=== PATIENT | male | born 2000 | race Caucasian/White ===

== ENCOUNTER 2021-01-26 20:10 | Inpatient (IN) | payer OTHER ==
[~2021-01-26] VITALS: Ht 172.7 cm; Wt 72.6 kg
[2021-01-26 20:33] VITALS: BP 121/66
--- NOTE | 2021-01-26 20:38 | NUR ---
patient to the bathroom for urine collection
--- NOTE | 2021-01-26 20:41 | NUR ---
patient to lobby
--- NOTE | 2021-01-26 20:58 | NUR ---
PATIENT TO CHAIR A
--- NOTE | 2021-01-26 21:02 | NUR ---
LABS DRAWN AND HANDED TO ILDA FROM LAB
--- NOTE | 2021-01-26 21:03 | NUR ---
ERMD for examination of patient
--- NOTE | 2021-01-26 21:03 | NUR ---
ERMD explained procedure and went over CT consent. questions answered. patient consented.
[2021-01-26] MEDS ORDERED: MORPHINE SULFATE 4 MG/ML SYR IVP ONE (21:10)
[2021-01-26] MEDS ORDERED: ONDANSETRON 4 MG/2 ML VIAL IVP ONE (21:10)
[2021-01-26 21:11] LABS: MEAN CORPUSCULAR HEMOGLOBIN 27 pg (27-31); PLATELET COUNT (AUTO) 230 K/uL (140-450); WHITE BLOOD COUNT (AUTO) 11.6 K/uL (4.8-10.8)
[2021-01-26 21:13] LABS: APPEARANCE,URINE CLEAR (CLEAR); BILIRUBIN,URINE NEGATIVE (NEGATIVE); BLOOD, URINE NEGATIVE (NEGATIVE); COLOR,URINE YELLOW (YELLOW); LEUKOCYTE ESTERASE ,URINE NEGATIVE (NEGATIVE); NITRITE, URINE NEGATIVE (NEGATIVE); UGLUCOSE NEGATIVE (NEGATIVE)
--- NOTE | 2021-01-26 21:16 | NUR ---
TO BED AMBULATORY
[2021-01-26 21:18] LABS: BASOPHILS # (AUTO) 0.1 K/uL (0.00-0.22); BASOPHILS % (AUTO) 0.5 % (0.0-2.0); EOSINOPHILS # (AUTO) 0.1 K/uL (0-0.4); EOSINOPHILS % (AUTO) 0.8 % (0.0-4.0); HEMATOCRIT 44.4 % (36-52); LYMPHOCYTES # (AUTO) 2.1 K/uL (2.0-11.5); LYMPHOCYTES % (AUTO) 18.3 % (20.5-51.1); MEAN CORPUSCULAR HGB CONC 34 g/dL (33-37); MONOCYTES # (AUTO) 0.9 K/uL (0.8-1.0); MONOCYTES % (AUTO) 8.1 % (1.7-9.3); NEUTROPHILS # (AUTO) 8.4 K/uL (1.8-7.7); NEUTROPHILS % (AUTO) 72.3 % (42.2-75.2); RED BLOOD CELL COUNT(AUTO) 5.55 MIL/uL (4.20-6.10); RED CELL DISTRIBUTION WIDTH 13.3 % (11.6-13.7)
--- NOTE | 2021-01-26 21:20 | NUR ---
PT. IS A 20 Y/O MALE WHO CAME TO ED WITH C/O OF RIGHT SIDED ABDOMINAL PAIN. PT. STATES HE HAD AN APPENDECTOMY ON NOVEMBER 28, 2020 AND 2 WEEKS AGO HIS ABDOMEN ON HIS RIGHT SIDED HAS STARTED TO SWELL AND HAS BECOME PAINFUL. PT. RATES PAIN 8/10 ON THE PAIN SCALE AT THIS TIME. DENIES N/V/D/FEVER. SKIN IS PINK/WARM/DRY; AAOX4 WITH EVEN AND STEADY GAIT; HR EVEN AND REGULAR; PT DENIES ANY FEVER, CP, SOB, OR COUGH AT THIS TIME; VSS; PATIENT POSITIONED FOR COMFORT; HOB ELEVATED; BEDRAILS UP X1; BED DOWN. ER MD MADE AWARE OF PT STATUS. PMH: APPENDECTOMY (NOVEMBER 28, 2020) ALLERGIES: NKA
[2021-01-26 21:22] LABS: ALBUMIN 3.9 g/dL (3.4-5.0); CARBON DIOXIDE 29.7 mmol/L (21-32); CREATININE 1.3 mg/dL (0.6-1.3); POTASSIUM 3.7 mmol/L (3.5-5.1); TOTAL BILIRUBIN 0.7 mg/dL (0.0-1.0)
--- NOTE | 2021-01-26 21:41 | NUR ---
PT. TAKEN TO CT VIA W/C
--- NOTE | 2021-01-26 21:56 | NUR ---
PT. BACK FROM CT.
--- NOTE | 2021-01-26 22:57 | NUR ---
PT. LAYING COMFORTABLY IN SUPINE POSITION WITH EYES CLOSED, VOICES NO COMPLAINTS AT THIS TIME. WILL CONTINUE TO MONITOR
[2021-01-26] MEDS ORDERED: PIPERACILLIN/TAZOBACTAM 3.375 GM in DEXTROSE 5% 50 ML IV ONE (23:05)
[2021-01-26] MEDS ORDERED: PIPERACILLIN/TAZOBACTAM 3.375 GM VIAL IV ONE (23:10)
--- NOTE | 2021-01-26 23:13 | NUR ---
Dr. Galloway examining patient.
[2021-01-27] MEDS ORDERED: MORPHINE SULFATE 4 MG/ML SYR IVP ONE (00:05)
[2021-01-27] MEDS ORDERED: ONDANSETRON 4 MG/2 ML VIAL IVP ONE (00:05)
[2021-01-27] MEDS ORDERED: MORPHINE SULFATE 4 MG/ML SYR IVP PRN (00:30)
[2021-01-27] MEDS ORDERED: ACETAMINOPHEN 325 MG TAB PO PRN (00:30)
--- NOTE | 2021-01-27 00:50 | NUR ---
PT. FATHER (BERNARDA FONTENOT) ASKED TO BE UPDATED ON PT. REGARDING STATUS OF PENDING SURGERY. PHONE NUMBER:
[2021-01-27] MEDS: LACTATED RINGERS 1,000 ML IV SCH ×3 (01:16→20:30)
--- NOTE | 2021-01-27 01:26 | NUR ---
SPOKE TO DR. WELLER OVER THE PHONE REGARDING PT. TEMPERATURE OF 100.6 AND OF PT. PAIN AND GIVEN MORPHINE 4MG [address] WELLER GIVEN NEW ORDERS OF: TYLENOL 650MG PRN RECTALLY AND DILAUDID 1MG Q 4HRS PRN IVP.
--- NOTE | 2021-01-27 01:30 | NUR ---
PT. GIVEN COLD COMPRESS ON FOREHEAD AND UNDER ARMPITS FOR 100.6 TEMP.
[2021-01-27] MEDS ORDERED: HYDROmorphone PFS 2 MG/ML SYR IVP SCH (01:40)
[2021-01-27] MEDS ORDERED: ACETAMINOPHEN 650 MG SUPP RC SCH (01:40)
[2021-01-27] MEDS ORDERED: HYDROmorphone 1 MG/ML AMP ONE (01:47)
[2021-01-27] MEDS ORDERED: ACETAMINOPHEN 650 MG SUPP RC ONE (01:48)
--- NOTE | 2021-01-27 02:25 | NUR ---
PT. STATES RELIEF FROM PAIN AND RECHECKED TEMP. ORALLY = 100.2
--- NOTE | 2021-01-27 03:00 | NUR ---
SHALINI FROM CT CALLED TO ORDERS PT, INR, AND PLT LAB. I TOLD HER THAT THEY WERE ALREADY ORDERED.
--- NOTE | 2021-01-27 03:31 | NUR ---
RECHECKED ORAL TEMP. = 99.0
[2021-01-27] MEDS ORDERED: PIPERACILLIN/TAZOBACTAM 3.375 GM VIAL IV ONE ×2 (05:02→22:53)
[2021-01-27] MEDS: PIPERACILLIN/TAZOBACTAM 3.375 GM in DEXTROSE 5% 50 ML IV SCH ×3 (05:22→21:00)
--- NOTE | 2021-01-27 06:11 | NUR ---
ROSA SWAB COLLECTED AND WALKED TO LAB. HANDED TO ADELINE, FROM LAB
--- NOTE | 2021-01-27 07:22 | NUR ---
REPORT GIVEN TO PAU CASTILLO. TRANSFER OF CARE AT THIS TIME
--- NOTE | 2021-01-27 07:23 | NUR ---
RECEIVED REPORT FROM PAU VINCENT. TRANSFER OF CARE AT THIS TIME.
--- NOTE | 2021-01-27 07:55 | NUR ---
SPOKE WITH AYAN FOR REPORT TO BE GIVEN. ASKED IF SHE COULD CALL BACK IN 5 MINUTES AT OUR EXTENSION. SHARMILA LEONARD RN MADE AWARE.
--- NOTE | 2021-01-27 08:00 | NUR ---
SPOKE WITH AYAN FOR REPORT TO BE GIVEN. ASKED IF SHE COULD CALL BACK IN 10 MINUTES AT OUR EXTENSION. SHARMILA LEONARD RN MADE AWARE.
--- NOTE | 2021-01-27 08:23 | NUR ---
GAVE REPORT TO PAU BOTELLO FOR PENDING ADMISSION TO [facility]. ETA 10MINUTES.
--- NOTE | 2021-01-27 08:30 | NUR ---
Patient will be admitted to care of DR. WELLER. Admited to M/S. Will go to room 128B. Belongings list completed. Report to PAU BOTELLO.
[2021-01-27 10:19] VITALS: BP 110/53
[2021-01-27] MEDS: HYDROmorphone 1 MG/ML AMP IVP PRN ×4 (10:48→22:47)
[2021-01-27] MEDS: ONDANSETRON 4 MG/2 ML VIAL IVP PRN ×4 (10:48→22:50)
--- NOTE | 2021-01-27 10:57 | NUR ---
ADMINISTERED SCHEDULED MEDICATIONS PER MD ORDER. IV FLUIDS ARE RUNNING WELL. ADMINISTERED 1MG OF DILAUDID FOR PAIN 9/10 ON ABDOMEN WHICH IS DESCRIBED STABBING. EDUCATED PT ON MEDICATIONS SIDE EFFECTS AND MOA. PT VERBALIZED UNDERSTANDING. BP IS 121/59 WY 71 RR19. PT IS TALKING ON THE PHONE AND NO SIGNS OF ACUTE DISTRESS IS NOTED. SAFETY PRECAUTIONS ARE IN PLACE. WILL CONTINUE TO MONITOR.
--- NOTE | 2021-01-27 13:37 | NUR ---
ADMINISTERED SCHEDULED MEDICATIONS PER MD ORDER. EDUCATED PT ON MEDICATIONS MOA AND SIDE EFFECTS. PT VERBALIZED UNDERSTANDING. PT IS ON THE PHONE. IV FLUIDS ARE RUNNING WELL. SAFETY PRECAUTIONS ARE IN PLACE. WILL CONTINUE TO MONITOR.
--- NOTE | 2021-01-27 13:42 | NUR ---
MESSAGED DR. HUNTER TO CLARIFY IF PT WAS GOING TO HAVE A DRAINAGE OR BIOPSY BECAUSE SHALINI FROM CT WAS CONFUSED.
[2021-01-27 13:51] LABS: PROTHROMBIN TIME 9.7 secs (10.8-13.4)
--- NOTE | 2021-01-27 14:00 | NUR ---
PT REQUESTED TO TALK TO MD.WILL CONTACT MDTO TALK TO PT IN REGARDS HIS STATUS.
--- NOTE | 2021-01-27 14:07 | NUR ---
DR. HUNTER INSTRUCTED ME TO NOTIFY DR. BARAKAT ABOUT CT. WILL CONTACT DR. BARAKAT.
--- NOTE | 2021-01-27 14:22 | NUR ---
ADMINISTERED 1MG OF DILAUDID AND ZOFRAN FOR PAIN 8/10 ON ABDOMEN DESCRIBED STABBING PAIN. BP WAS 113/56 FL 68 RR 18. EDUCATED PT ON MEDICATIONS MOA AND SIDE EFFECTS. PT VERBALIZED UNDERSTANDING. CALL LIGHT IS WITHIN REACH. PT'S FATHER IS AT BEDSIDE. WILL CONTINUE TO MONITOR.
--- NOTE | 2021-01-27 15:32 | NUR ---
AFTER NO ANSWER FROM DR. BARAKAT, CALLED DR. BARAKAT AND THERE WAS NO ANSWER. I LEFT A VOICE MESSAGE TO CALL BACK.
[2021-01-27 16:00] VITALS: BP 109/55
--- NOTE | 2021-01-27 16:00 | NUR ---
DR. BARAKAT ORDERED A CT ABDOMEN AND PELVIS ORAL CONTRAST ONLY WITH DELAYED FILM. DR. BARAKAT SPOKE TO PT'S FATHER OVER THE PHONE. PT AND PT'S FAMILY UNDERSTAND POC.
--- NOTE | 2021-01-27 18:36 | NUR ---
ADMINISTERED SCHEDULED MEDICATIONS PER MD ORDER. EDUCATED PT ON MEDICATIONS MOA AND SIDE EFFECTS. PT VERBALIZED UNDERSTANDING. BP WAS 119/51 CO 81 RR 19. WILL CONTINUE TO MONITOR.
--- NOTE | 2021-01-27 19:30 | NUR ---
ENDORSED TO NIGHT NURSE FOR CONTINUITY OF CARE. PT IS STABLE
[2021-01-27 20:00] VITALS: BP 126/65
--- NOTE | 2021-01-27 20:00 | NUR ---
PATIENT RECEIVED IN BED ALERT AND ORIENTED X 3-4 ABLE TO SPEAK NEEDS, NO S/S OF DISTRESS.
--- NOTE | 2021-01-27 23:00 | NUR ---
PATIENT WAS SENT TO THE RADIOLOGY FOR ABD CT SCAN.
--- NOTE | 2021-01-28 | NUR ---
PATIENT WAS CALMLY ASLEEP
--- NOTE | 2021-01-28 02:00 | NUR ---
PATIENT WAS CALMLY ASLEEP
[2021-01-28] MEDS: HYDROmorphone 1 MG/ML AMP IVP PRN ×6 (03:37→21:45)
[2021-01-28] MEDS: ONDANSETRON 4 MG/2 ML VIAL IVP PRN ×2 (03:38→08:49)
[2021-01-28 04:00] VITALS: BP 124/70
--- NOTE | 2021-01-28 04:00 | NUR ---
AT 330 PATIENT ASKED OF PAIN SHOT AND ZOFRAN FOR NAUSEA AND PAIN.
[2021-01-28] MEDS: PIPERACILLIN/TAZOBACTAM 3.375 GM in DEXTROSE 5% 50 ML IV SCH ×3 (05:00→21:00)
[2021-01-28 06:13] LABS: BASOPHILS % (AUTO) 0.4 % (0.0-2.0); EOSINOPHILS # (AUTO) 0.2 K/uL (0-0.4); EOSINOPHILS % (AUTO) 1.5 % (0.0-4.0); HEMOGLOBIN 13.4 g/dL (12.0-18.0); LYMPHOCYTES # (AUTO) 2.1 K/uL (2.0-11.5); LYMPHOCYTES % (AUTO) 17.8 % (20.5-51.1); MEAN CORPUSCULAR HEMOGLOBIN 27 pg (27-31); MEAN CORPUSCULAR HGB CONC 34 g/dL (33-37); MEAN CORPUSCULAR VOLUME 79.3 fL (80-94); MONOCYTES # (AUTO) 1.2 K/uL (0.8-1.0); NEUTROPHILS # (AUTO) 8.2 K/uL (1.8-7.7); NEUTROPHILS % (AUTO) 70.3 % (42.2-75.2); PLATELET COUNT (AUTO) 201 K/uL (140-450); RED BLOOD CELL COUNT(AUTO) 5.04 MIL/uL (4.20-6.10); RED CELL DISTRIBUTION WIDTH 12.9 % (11.6-13.7); WHITE BLOOD COUNT (AUTO) 11.6 K/uL (4.8-10.8)
[2021-01-28 06:20] LABS: ANION GAP 14.2 (8-16); CARBON DIOXIDE 25.7 mmol/L (21-32); CREATININE 1.1 mg/dL (0.6-1.3); POTASSIUM 3.9 mmol/L (3.5-5.1)
[2021-01-28] MEDS: LACTATED RINGERS 1,000 ML IV SCH ×2 (06:43→16:33)
[2021-01-28 08:00] VITALS: BP 114/56
--- NOTE | 2021-01-28 08:00 | NUR ---
ALL REPORTS WERE GIVEN, TRANSFER OF CARE ENDORSED.
--- NOTE | 2021-01-28 08:46 | NUR ---
PATIENT HAS BEEN SCREENED AND CATEGORIZED MODERATE NUTRITION RISK. PATIENT WILL BE SEEN WITHIN 3-5 DAYS OF ADMISSION. 01/29/21 01/31/[address]
[2021-01-28] MEDS: ENOXAPARIN 40 MG/0.4 ML SYR SUBQ SCH (08:47)
--- NOTE | 2021-01-28 08:49 | NUR ---
ADMINISTERED SCHED MED PRESCRIBED PER MD ORDER. PT TOLERATED WELL. PT COMPLAINED OF SEVERE PAIN. PRN PAIN MEDICATION EDUCATION PERFORMED. PT VERBALIZED UNDERSTANDING. SAFETY MEASURES IN PLACE. WILL CONTINUE TO MONITOR
--- NOTE | 2021-01-28 09:07 | NUR ---
Father requested to speak to nursing sup. requested his son to transfer to [facility]. His concern that he has not seen the surgeon and the primary doctor. Paged Dr Valladares and spoke to the father, Paged Dr Barakat surgeon and spoke to the father. I called [facility] transfer center and no bed available and stated if the surgery did not take place at [facility], they cannot accept the patient. Called [facility] k[facility] and spoke to Ana Cristina and faxed all paper work at [phone] called the rn case manager hospice at [facility] spoke to Sridevi and faxed her the information and request of transfer per the father at [phone] Father was made aware of all the places of transfers. Addendum: 01/28/21 at 1509 by Rani Medley RN DC PLANNING: SPOKE WITH PT'S FATHER CALVIN , DISCUSSED THE ISSUES AND CONCERNS, AND HE REQUESTED FOR HIS SON TO BE TRANSFERRED TO [facility] WHICH HE HAD SURGERY THERE [address] BARAKAT. SPOKE WITH DR MARTIN STATED DR BARAKAT WILL BE THE ACCEPTING DR. CALLED [facility] [phone] SPOKE WITH MECHANICAL FACILITIES TECHNICIAN BEA STATED THEY ARE FULL NO BEDS 48 PEOPLE ARE WAITING FOR BED AND UNABLE TO ACCEPT HIM. CALLED DR BARAKAT AND NOTIFIED HIM THAT NO BED AVAILABLE. PER DR BARAKAT TO TELL FAMILY AND WHEN HE COMES HE WILL DISCUSS WITH THEM. I INFORMED CALVIN THAT THE [facility] HAS NO BED. HE STATED HE UNDERSTOOD THE HIGH DEMAND FOR BED AND WILLING TO STAY AT THE HOSPITAL LONG THERE IS CLEAR COMMUNICATION BETWEEN THE NURSES AND THE PATIENT. I CLARIFIED AND INSTRUCT FOR ANY ISSUES TO ADDRESS IT WITH MECHANICAL FACILITIES TECHNICIAN AND PROVIDE MY NUMBER FOR ANY ISSUES AND CONCERN . BOTH THANKED ME AND WANTED TO STAY AND CONTINUE WITH THE PROCEDURE. AWAITING FOR DR WONG. CORRALES TO FOLLOW Addendum: 01/29/21 at 1353 by Rani Medley RN DC PLANNING: MET DR BARAKAT IN PT'S ROOM EXAMINED AND EXPLAINED, ANSWERED ALL QUESTION, NO SURGERY NEEDED BUT WILL CONSULT GI TO EVALUATE HIM. I ASKED DR BARAKAT THAT IF HE STILL WANTED TO TRANSFER HIM TO [facility] STATED IF THEY HAVE A BED TO CHECK WITH THEM. CALLED [facility] SPOKE WITH MELANIE RICHARDSON SUP STILL FULL HIGH VOLUME OF WAITING FOR BED. FAXED THE REQUEST TO [phone] BARAKAT. SAVANNA TO FOLLOW. Addendum: 01/31/21 at 1213 by Rani Medley RN DC PLANNING: CALLED DR BARAKAT DISCUSSED THE DC PLAN , HE STATED WILL DC HIM TOMORROW 02/01 WITH [facility] ABX AND FOLLOW UP WITH HIM AND DR KILLIAN OUT PATIENT. CALLED DR ORTIZ AND DISCUSSED THE DC PLAN. PER DR ORITZ WILL EVALUATE PATIENT. CM TO FOLLOW Addendum: 01/31/21 at 1718 by Rani Medley RN DC PLANNING: I WAS CALLED BY PATIENT AND HIS STEP MOM REQUESTING TO CLARIFY WITH DR BARAKAT IS OK WITH DC I CALLED DR DUARTE DISCUSSED THAT IF OK WITH DR BARAKAT . DR DUARTE STATED DISCUSSED WITH DR BARAKAT AND AGREED THAT PATIENT IS STABLE FOR DC AND TO FOLLOW UP WITH GI AND SURGEON WITH IN [address]. [address] KILLIAN'S OFFICE REQUESTED AUTH FROM THE INSURANCE FAXED TO [facility] AND WILL FOLLOWUP TOMORROW. EXPLAINED TO THE PATIENT AND FAMILY THEY BOTH AGREED AND I WILL BE CALLING THEM WITH THE FOLLOW UP APPOINTMENT I ALSO CLARIFIED THE PHONE NUMBER ON THE FACE SHEET. PT ALERT AND ORIENTED X 4 NO COMPLAIN OF PAIN TOLERATED FOOD INTAKE WELL STABLE FOR DISCHARGE. CM T FOLLOW Addendum: 02/01/21 at 1615 by Rani Medley RN DC PLANNING: CALLED [facility] SPOKE WITH SHAY CORRALES PROVIDE THE OUT PATIENT VISIT AUTH# FOR DR SUNITHA BARRAZA (GI) [id number] [address] [address] PHONE NUMBER [phone] FAXED ALL PAPERWORK TO [phone]. APPOINTMENT DAY 2020 AT 1:50 PM ,IT WILL BE TELEPHONE CALL. FOR DR YUVAL MANZANO AUTH NUMBER [id number] AND THE ADDRESS [address] [id number]. ANOINTMENT DAY AT 9:45 AM. CALLED PATIENT ON HIS CELL [phone] PROVIDE THE APPOINTMENT DATE. PT VERBALIZED UNDERSTANDING AND WILL PLAN TO GO SEE THE DR. CORRALES TO FOLLOW
--- NOTE | 2021-01-28 11:05 | NUR ---
FATHER WANTS TO PT TO BE TRANSFERED TO A DIFFERENT HOSPITAL. INFORMED DAD THAT DR. PALENCIA NOTIFIED RN THAT HE WILL BE SEEING THE PATIENT IN THE AFTERNOON SINCE HE IS CURRENTLY AT A DIFFERENT HOSPITAL. DAD VERBALIZED UNDERSTANDING
--- NOTE | 2021-01-28 12:00 | NUR ---
DR. DE LA PAZ AT BEDSIDE ASSESSING PATIENT AND SPEAKING WITH FATHER
--- NOTE | 2021-01-28 12:30 | NUR ---
NOTIFIED CASE MANAGEMENT OF PATIENT SITUATION. DAD IS AWARE THAT CASE MANAGEMENT IS ON THE CASE AND WILL VISIT HIM SHORTLY. WILL CONTINUE TO MONITOR
--- NOTE | 2021-01-28 13:06 | NUR ---
PATIENT COMPLAINED OF SEVERE PAIN. PRN PAIN MEDICATION ADMINISTERED PRESCRIBED PER MD ORDER. PT TOLERATED WELL. MEDICATION EDUCATION PERFORMED. PT VERBALIZED UNDERSTANDING. SAFETY MEASURES IN PLACE. WILL CONTINUE TO MONITOR
--- NOTE | 2021-01-28 14:30 | NUR ---
PT AND DAD RESTING IN BED. NO NEEDS AT THIS TIME. NO SIGNS OF DISTRESS. SAFETY MEASURES IN PLACE. WILL CONTINUE TO MONITOR
[2021-01-28 16:00] VITALS: BP 129/63
--- NOTE | 2021-01-28 16:36 | NUR ---
ADMINISTERED SCHED IV FLUID PRESCRIBED PER MD ORDER. PT TOLERATED WELL. SAFETY MEASURES IN PLACE. WILL CONTINUE TO MONITOR
--- NOTE | 2021-01-28 18:15 | NUR ---
PATIENT RESTING IN BED. ABLE TO MAKE NEEDS KNOWN. RESPIRATIONS EVEN AND UNLABORED WITH NO SOB OR RESPIRATORY DISTRESS. SAFETY MEASURES IN PLACE. WILL CONTINUE TO MONITOR
--- NOTE | 2021-01-28 19:13 | NUR ---
ENDORSED AT BEDSIDE TO NIGHTSHIFT FOR NURSE FOR CONTINUITY OF CARE
--- NOTE | 2021-01-28 20:00 | NUR ---
PATIENT WAS RECEIVED IN BED ALERT AND ORIENTED, COHERENT, DENIES ANY PAIN AT THIS TIME.
--- NOTE | 2021-01-28 21:00 | NUR ---
DUE IV MED WAS GIVEN INFUSING WELL TOLERATED BY THE PATIENT , C/O PAIN IN HIS ABD 01/15 DILAUDID 1 MG UC ARCHITECT WAS GIVEN TOLERATED WELL BY THE PATIENT.
[2021-01-28] MEDS ORDERED: PIPERACILLIN/TAZOBACTAM 3.375 GM VIAL IV ONE (21:32)
--- NOTE | 2021-01-29 | NUR ---
PATIENT WAS CALMLY ASLEEP AT THIS TIME, NOS/S OF DISTRESS NOR GRIMACING.
[2021-01-29] MEDS: MORPHINE SULFATE 2 MG/ML SYR IVP PRN ×2 (01:18→14:08)
--- NOTE | 2021-01-29 02:00 | NUR ---
PATIENT WAS CALMLY ASLEEP AT THIS TIME, NOS/S OF DISTRESS NOR GRIMACING.
[2021-01-29] MEDS: HYDROmorphone 1 MG/ML AMP IVP PRN ×4 (02:32→20:18)
[2021-01-29] MEDS ORDERED: PIPERACILLIN/TAZOBACTAM 3.375 GM VIAL IV ONE (04:39)
[2021-01-29] MEDS: metroNIDAZOLE 500 MG/NS PREMIX 100 ML IV SCH ×3 (04:41→21:28)
[2021-01-29] MEDS: PIPERACILLIN/TAZOBACTAM 3.375 GM in DEXTROSE 5% 50 ML IV SCH ×3 (04:49→20:19)
--- NOTE | 2021-01-29 05:00 | NUR ---
V/S WNL, FLAGYL 500 MG/100 ML IVPB WAS INFUSED AT 100 ML/HOUR, TOLERATED WELL, ZOSYN 3.375 GMS/ 50 ML WAS ADMINISTERED AFTER THE FLAGYL AT 100 ML/ HOUR TOLERATED WELL BY THE PATIENT, NO ASE OBSERVED.
--- NOTE | 2021-01-29 07:08 | NUR ---
ALL REPORTS WERE GIVEN, TRANSFER OF CARE ENDORSED.
--- NOTE | 2021-01-29 07:30 | NUR ---
RECEIVED REPORT FROM DAY SHIFT NURSE. AOX4, ABLE TO MAKE NEEDS KNOWN, AMBULATORY, B/B CONTINENT. NO SOB, ON ROOM AIR, NO C/O PAIN AT THIS TIME. WITH IV ON LAC 20G LR AT 10CC/HR. ON CLEAR LIQUID DIET. SKIN IS INTACT. SAFETY PRECAUTIONS IN PLACE. CALL LIGHT WITHIN REACH. WILL CONTINUE TO MONITOR
[2021-01-29 08:00] VITALS: BP 118/68
[2021-01-29] MEDS: ENOXAPARIN 40 MG/0.4 ML SYR SUBQ SCH (09:00)
--- NOTE | 2021-01-29 09:30 | NUR ---
DUE MEDS GIVEN. NO SOB PAIN. WITH TOLERABLE ABD PAIN AT THIS TIME
--- NOTE | 2021-01-29 11:30 | NUR ---
WITH C/O ABD PAIN 01/15. DILAUDID IVP GIVEN ORDERED
[2021-01-29] MEDS: LACTATED RINGERS 1,000 ML IV SCH ×3 (12:10→23:44)
--- NOTE | 2021-01-29 12:30 | NUR ---
SEEN BY NATACHA WILLINGHAM. MAT ADVANCE DIET TO SOFT
[2021-01-29 12:58] LABS: BASOPHILS % (AUTO) 0.6 % (0.0-2.0); EOSINOPHILS # (AUTO) 0.1 K/uL (0-0.4); EOSINOPHILS % (AUTO) 1.7 % (0.0-4.0); HEMATOCRIT 40.8 % (36-52); HEMOGLOBIN 13.8 g/dL (12.0-18.0); LYMPHOCYTES # (AUTO) 1.5 K/uL (2.0-11.5); LYMPHOCYTES % (AUTO) 18.5 % (20.5-51.1); MEAN CORPUSCULAR HEMOGLOBIN 27 pg (27-31); MEAN CORPUSCULAR HGB CONC 34 g/dL (33-37); MEAN CORPUSCULAR VOLUME 79.4 fL (80-94); MONOCYTES # (AUTO) 0.8 K/uL (0.8-1.0); MONOCYTES % (AUTO) 9.7 % (1.7-9.3); NEUTROPHILS # (AUTO) 5.6 K/uL (1.8-7.7); NEUTROPHILS % (AUTO) 69.5 % (42.2-75.2); PLATELET COUNT (AUTO) 191 K/uL (140-450); RED BLOOD CELL COUNT(AUTO) 5.14 MIL/uL (4.20-6.10)
--- NOTE | 2021-01-29 13:15 | NUR ---
PT EATING LUNCH AT THIS TIME, NO C/O PAIN, NO SOB
--- NOTE | 2021-01-29 14:30 | NUR ---
PT REQUESTED TO SHOWER. TOWELS AND TOILETRIES PROVIDED. PT AMBULATED TO SHOWER ROOM
[2021-01-29 16:00] VITALS: BP 124/66
--- NOTE | 2021-01-29 16:20 | NUR ---
PT RESTING IN BED, NO C/O PAIN AT THIS TIME, NO RESPIRATORY DISTRESS
--- NOTE | 2021-01-29 18:22 | NUR ---
PT'S FATHER AT BEDSIDE. NO COMPLAINTS AT THIS TIME
[2021-01-29 20:00] VITALS: BP 126/64
--- NOTE | 2021-01-29 20:00 | NUR ---
RECEIVED REPORT AT BEDSIDE.FATHER AT BEDSIDE.PT'S CONDITION IS STABLE.IVF INFUSING WELL. CALL LIGHT WITHIN REACH.WILL CONT.MONITORING.
[2021-01-30] MEDS: HYDROmorphone 1 MG/ML AMP IVP PRN ×2 (00:28→06:33)
--- NOTE | 2021-01-30 00:54 | NUR ---
HAD C/O PAIN EARLIER.IV MED GIVEN.WILL REASSESS PAIN PER PROTOCOL.
--- NOTE | 2021-01-30 02:19 | NUR ---
LATE ENTRY- ZOSYN IVPB DISCONTINUED AT 2355 AND LR IVF DISCONTINUED AT 0830.
--- NOTE | 2021-01-30 03:00 | NUR ---
SLEEPING.NO DISTRESS NOTED NOW.
[2021-01-30 04:00] VITALS: BP 127/64
[2021-01-30] MEDS: PIPERACILLIN/TAZOBACTAM 3.375 GM in DEXTROSE 5% 50 ML IV SCH ×3 (04:33→21:30)
[2021-01-30] MEDS: MORPHINE SULFATE 2 MG/ML SYR IVP PRN ×3 (04:35→18:39)
[2021-01-30] MEDS: metroNIDAZOLE 500 MG/NS PREMIX 100 ML IV SCH ×3 (05:13→21:54)
--- NOTE | 2021-01-30 07:24 | NUR ---
RECEIVED REPORT FROM ASSISTANT PLANT CONTROL OPERATOR NURSE FOR CONTINUITY OF CARE, POC DISCUSSED. PT IS STABLE WITH NO ACUTE S/S OF DISTRESS. PT IS ASLEEP IN BED ON ROOM AIR WITH CHEST RISING AND FALLING EVEN AND UNLABORED. PT HAS A LEFT AC 20 G RUNNING LR AT 120. SKIN INTACT, ALL SAFETY MEASURES IN PLACE. CALL LIGHT WITHIN REACH. WILL CONTINUE TO MONITOR.
--- NOTE | 2021-01-30 07:45 | NUR ---
ENDORSED TO AM RN IN STABLE CONDITION.
[2021-01-30] MEDS: ENOXAPARIN 40 MG/0.4 ML SYR SUBQ SCH (08:31)
[2021-01-30] MEDS: LACTATED RINGERS 1,000 ML IV SCH ×2 (08:31→18:27)
--- NOTE | 2021-01-30 09:14 | NUR ---
PT REFUSED LOVENOX, STATES HE DOES NOT WANT IT BECAUSE HE IS WALKING AROUND MORE. EDUCATION PROVIDED, PT STILL DECLINES. MEDICATION RETURNED. LR FLUIDS RESTARTED. PT REPORTS A MILD HEADACHE, MEDICATED PER MD ORDER. PT EDUCATION PROVIDED. PT REPORTS ALL OTHER NEEDS ARE MET AT THIS TIME. CALL LIGHT WITHIN REACH. WILL CONTINUE TO MONITOR.
--- NOTE | 2021-01-30 10:19 | NUR ---
PT IS RESTING IN BED WITH NO ACUTE S/S OF DISTRESS. PT VERBALIZED ALL NEEDS ARE MET AT THIS TIME. REPORTS PAIN TOLERABLE. ALL SAFETY MEASURES IN PLACE, CALL LIGHT WITHIN REACH. WILL CONTINUE TO MONITOR.
--- NOTE | 2021-01-30 11:30 | NUR ---
PT SHEETS HAVE BEEN CHANGED, PT PROVIDED WITH WATER. PT REPORTS PAIN TOLERABLE AND NOT REQUESTING PAIN MEDICATION. PT URINAL EMPTIED OF 400 ML. PT REPORTS A BOWEL MOVEMENT DURING AM, REPORTS BEING FULL OF GAS. ALL SAFETY MEASURES IN PLACE, CALL LIGHT WITHIN REACH. WILL CONTINUE TO MONITOR.
[2021-01-30 12:00] VITALS: BP 112/58
--- NOTE | 2021-01-30 13:29 | NUR ---
YAQUELIN MEDICATION ADMINISTERED PER MD ORDER, PT REPORTED OF MODERATE PAIN, MEDICATED PER MD ORDER. PT TOLERATED ADMINISTRATION. ALL SAFETY MEASURES IN PLACE. CALL LIGHT WITHIN REACH. WILL CONTINUE TO MONITOR.
--- NOTE | 2021-01-30 15:04 | NUR ---
PT DENIES PAIN AND NAUSEA. ALL SAFETY MEASURES IN PLACE, CALL LIGHT WITHIN REACH. WILL CONTINUE TO MONITOR.
--- NOTE | 2021-01-30 15:46 | NUR ---
01/30/21 RD INITIAL ASSESSMENT COMPLETED PLEASE REFER TO NUTRITION ASSESSMENT UNDER CARE ACTIVITY FOR ESTIMATED NUTRITIONAL NEEDS. 1. CONTINUE SOFT DIET MEDICALLY APPROPRIATE 2. IF/WHEN MEDICALLY APPROPRIATE ADVANCE PATIENT TO REGULAR DIET 3. RD TO FOLLOW-UP 5-7 DAYS, LOW RISK GARY MAR, RD
--- NOTE | 2021-01-30 17:01 | NUR ---
PT IS STABLE WITH NO ACUTE S/S OF DISTRESS, ALL SAFETY MEASURES IN PLACE. CALL LIGHT WITHIN REACH. WILL CONTINUE TO MONITOR.
--- NOTE | 2021-01-30 18:40 | NUR ---
PT IV FLUIDS HAVE BEEN REPLENISHED. PT REPORTED OF 8/10 PAIN, MEDICATED PER MD ORDER. PT EDUCATION PROVIDED. PT TOLERATED ADMINISTRATION. DINNER AT BEDSIDE. FATHER AT BEDSIDE. ANSWERED ALL OF FATHERS QUESTIONS. FATHER REPORTED THAT DURING STRATEGIC SOURCING SPECIALIST, SOMEONE WHO ANSWERED HIS CALL LIGHT WAS RUDE AND DISRESPECTFUL. NOTIFIED CHARGE NURSE.
--- NOTE | 2021-01-30 19:05 | NUR ---
PT ENDORSED TO AUTOMATION QTP TESTER IN STABLE CONDITION, POC DISCUSSED.
--- NOTE | 2021-01-30 19:06 | NUR ---
RECEIVED REPORT FROM AM NURSE. PATIENT IN BED RESTING. NO SOB NOTED. NO COMPLAINTS OF PAIN AT THIS TIME. ALL SAFETY PRECAUTIONS ARE IN PLACE. CALL LIGHT WITHIN REACH. IVF INFUSING WELL. WILL CONTINUE TO MONITOR.
--- NOTE | 2021-01-30 21:30 | NUR ---
ZOSYN GIVEN ORDERED.
--- NOTE | 2021-01-30 21:54 | NUR ---
FLAGYL ADMINISTERED PER MD ORDERED.
[2021-01-31] VITALS: BP 112/59
[2021-01-31] MEDS: HYDROmorphone 1 MG/ML AMP IVP PRN (00:01)
--- NOTE | 2021-01-31 00:01 | NUR ---
COMPLAINED OF SEVERE ABDOMINAL PAIN 01/15. PRN MEDICATION GIVEN ORDERED.
[2021-01-31] MEDS: LACTATED RINGERS 1,000 ML IV SCH ×2 (04:30→14:30)
[2021-01-31] MEDS: PIPERACILLIN/TAZOBACTAM 3.375 GM in DEXTROSE 5% 50 ML IV SCH ×2 (05:22→13:45)
--- NOTE | 2021-01-31 05:28 | NUR ---
DUE MEDS GIVEN ORDERED.
[2021-01-31] MEDS: metroNIDAZOLE 500 MG/NS PREMIX 100 ML IV SCH ×2 (05:47→12:42)
--- NOTE | 2021-01-31 07:21 | NUR ---
ENDORSED TO AM NURSE FOR CONTINUITY OF CARE. PATIENT IS IN STABLE CONDITION.
--- NOTE | 2021-01-31 07:33 | NUR ---
RECEIVED REPORT FROM MANAGER STAFFING NURSE FOR CONTINUITY OF CARE, POC DISCUSSED. PT IS RESTING IN BED WITH NO ACUTE S/S OF DISTRESS. PT REPORTS PAIN OF 6/10. WILL MEDICATE PER MD ORDER. ALL SAFETY MEASURES IN PLACE, CALL LIGHT WITHIN REACH. WILL CONTINUE TO MONITOR.
[2021-01-31 07:57] LABS: ANION GAP 10.5 (8-16); CARBON DIOXIDE 33.3 mmol/L (21-32); CREATININE 1.1 mg/dL (0.6-1.3); POTASSIUM 3.8 mmol/L (3.5-5.1)
[2021-01-31] MEDS: ENOXAPARIN 40 MG/0.4 ML SYR SUBQ SCH (08:17)
[2021-01-31] MEDS: MORPHINE SULFATE 2 MG/ML SYR IVP PRN (08:17)
--- NOTE | 2021-01-31 08:21 | NUR ---
PT REFUSED YAQUELIN LOVENOX STATING THAT HE IS WALKING AND IT IS NOT NECESSARY AT THIS TIME. PT REPORTS PAIN, MEDICATED PER MD ORDER. PT EDUCATION PROVIDED. PT TOLERATED ADMINISTRATION. ALL SAFETY MEASURES IN PLACE, CALL LIGHT WITHIN REACH. WILL CONTINUE TO MONITOR.
[2021-01-31 08:44] LABS: BASOPHILS % (AUTO) 0.5 % (0.0-2.0); EOSINOPHILS # (AUTO) 0.3 K/uL (0-0.4); EOSINOPHILS % (AUTO) 5.1 % (0.0-4.0); HEMATOCRIT 41.7 % (36-52); LYMPHOCYTES # (AUTO) 1.7 K/uL (2.0-11.5); LYMPHOCYTES % (AUTO) 26.2 % (20.5-51.1); MEAN CORPUSCULAR HEMOGLOBIN 27 pg (27-31); MEAN CORPUSCULAR HGB CONC 34 g/dL (33-37); MEAN CORPUSCULAR VOLUME 79.8 fL (80-94); MONOCYTES # (AUTO) 0.5 K/uL (0.8-1.0); MONOCYTES % (AUTO) 8.2 % (1.7-9.3); NEUTROPHILS # (AUTO) 3.8 K/uL (1.8-7.7); PLATELET COUNT (AUTO) 224 K/uL (140-450); RED BLOOD CELL COUNT(AUTO) 5.22 MIL/uL (4.20-6.10); RED CELL DISTRIBUTION WIDTH 13.4 % (11.6-13.7); WHITE BLOOD COUNT (AUTO) 6.4 K/uL (4.8-10.8)
--- NOTE | 2021-01-31 09:45 | NUR ---
PT FATHER CALLED STATED HE HAS BEEN CALLING THE PTS ROOM AND PT IS NOT ANSWER, WENT TO PTS ROOM TO ASSESS AND PT VERBALIZED HE IS OKAY, HE JUST DIDNT SLEEP GOOD. INFORMED PT THAT HIS FATHER WAS TRYING TO CALL HIM, PT VERBALIZED OKAY.
--- NOTE | 2021-01-31 11:46 | NUR ---
DISCONNECTED PT FROM IV TUBING AND COVERED PTS IV SITE WITH BAG FOR PT TO SHOWER. WALKED PT TO SHOWER AND PT IS STABLE.
--- NOTE | 2021-01-31 12:24 | NUR ---
IV SITE IS INTACT AND PATENT AFTER SURGERY. YAQUELIN ABX ADMINISTERED PER MD ORDER, PT TOLERATED ADMINISTRATION. PT GOWN, SHEETS AND PILLOW CASES CHANGED. PT HAS LUNCH AT BEDSIDE WITH NEW WATER AND ICE.
--- NOTE | 2021-01-31 13:42 | NUR ---
PT REPORTED PAIN AND WOULD LIKE TO ATTEMPT TO CONTROL PAIN WITH PO MEDICATION. MEDICATED AND EDUCATED, PT VERBALIZED UNDERSTANDING. UPDATED THEM ON PTS PLAN OF CARE FROM DR BARAKAT, THEY VERBALIZED UNDERSTANDING. ALL QUESTIONS ANSWERED.
[2021-01-31] MEDS: HYDROcodone/APAP 5/325 MG 1 TAB TAB PO PRN ×2 (13:45→17:49)
[2021-01-31 13:47] VITALS: BP 117/64
--- NOTE | 2021-01-31 14:31 | NUR ---
PT REPORTS ALL NEEDS ARE MET AT THIS TIME. ALL SAFETY MEASURES IN PLACE, CALL LIGHT WITHIN REACH. WILL CONTINUE TO MONITOR.
--- NOTE | 2021-01-31 18:00 | NUR ---
PT HAS BEEN DISCHARGED. ALL DISCHARGE INSTRUCTIONS COVERED; MEDICATION, DURATION, SIDE EFFECTS AND LENGTH. FOLLOW UP WITH GI AND SURGEON WITHIN 2 WEEKS, CASE MANAGEMENT WILL CALL AND FOLLOW UP WITH THE SCHEDULED APPOINTMENT; CONFIRMED ACCURATE PHONE NUMBER. PT HAD BEEN MEDICATED PRIOR TO DISCHARGE DUE TO PAIN. EDUCATED ON TAKING PAIN MEDICATION NEEDED. EDUCATED ON S/S TO MONITOR FOR IN CASE OF AN EMERGENCY RETURN TO YOUR NEAREST ER. PT AND FAMILY AT BEDSIDE VERBALIZED UNDERSTANDING. ALL QUESTIONS HAVE BEEN ANSWERED AND PT/ FAMILY STATED THEY ARE SATISFIED. PT IS STABLE. PT IV HAS BEEN REMOVED, CATH IN PLACE. ID BAND REMOVED. PT HAS ALL HIS BELONGINGS. PT HAS BEEN WHEELED OUT AND DISCHARGE WITH FATHER AND STEP MOTHER IN STABLE CONDITION.
== END 2021-01-31 18:00 | disposition home or self-care (01) | DRG 254 ==
LOC: MED 20:10 → MTU 01-27 00:33 → MMU 01-27 08:15
PROVIDERS: ADMIT Internal Medicine; ATTEND Internal Medicine
DX: K63.1 Perforation of intestine (nontraumatic) (principal); K65.1 Peritoneal abscess; Z20.822 Contact with and (suspected) exposure to COVID-19; Z90.49 Acquired absence of other specified parts of digestive tract
CPT/HCPCS: 36415; 80048; 80053; 81003; 83605; 83690; 85025; 85610; 85730; 86140; 87040; 96365; 96375; 99291; J1170; J1650; J2270; J2405; J2543; J3490; J7060; J7120; Q9967